=== PATIENT | male | born 1970 | race Caucasian/White ===

== ENCOUNTER 2017-01-16 11:23 | Outpatient (RCR) | payer BC | END 2017-02-02 | disposition home or self-care (01) | LOC: WCC 11:23 | DX: L97.812 Non-pressure chronic ulcer of other part of right lower leg with fat layer exposed (principal); I10 Essential (primary) hypertension; G47.30 Sleep apnea, unspecified; Z79.82 Long term (current) use of aspirin | CPT/HCPCS: 99204 ==

== ENCOUNTER 2018-07-26 00:49 | Emergency (ER) | payer BC ==
[~2018-07-26] VITALS: Ht 165.1 cm; Wt 86.2 kg
[2018-07-26 01:00] VITALS: BP 130/78
[2018-07-26] MEDS ORDERED: QUINAPRIL HCL20 MG PO (01:04)
[2018-07-26] MEDS ORDERED: ASPIR 8181 MG ORAL (01:04)
--- NOTE | 2018-07-26 01:19 | NUR ---
ED Nurse Note: Patient walk in c/o laceration to 3rd digit on left hand 1 hour ago. AO4. NAD. VSS. significant other at bedside.
[2018-07-26] MEDS ORDERED: Bacitracin Oint UD TOPIC ONE ×2 (01:21→01:30)
[2018-07-26] MEDS ORDERED: BACITRACIN15 GM TOPIC (01:41)
[2018-07-26 01:45] VITALS: BP 130/78
--- NOTE | 2018-07-26 01:45 | NUR ---
ED Nurse Note: Patient cleared cleared for discharge per ERMD. AO4. NAD. VSS. Patient given prescriptions and discharge instructions; patient verbalized understanding. ID removed. Patient ambulated steady out of ED with all belongings.
--- NOTE | 2018-07-26 22:04 | Emergency Room Report ---
History of Present Illness General Chief Complaint: Laceration Source: Patient Present Illness HPI 48-year-old male presents ED for evaluation. States that he cut his left middle finger with a knife tonight. States it was bleeding a lot so he got nervous and came to the ER. Upon arrival patient states is no active bleeding. Denies pain. Tetanus is up-to-date. Notes full range of motion to the left middle finger. Denies any other injuries. No other aggravating relieving factors. Denies any other associated symptoms Allergies: Coded Allergies: No Known Allergies (Unverified , 07/26/18) Patient History Past Medical History: DM, HTN, asthma Social History: Denies: smoking, alcohol use, drug use Immunizations: UTD Reviewed Nursing Documentation: PMH: Agreed; PSxH: Agreed Nursing Documentation-PMH Past Medical History: No History, Except For Hx Hypertension: Yes Hx Asthma: Yes Hx Diabetes: Yes - pre diabetes Review of Systems All Other Systems: negative except mentioned in HPI Physical Exam Vital Signs Date Time Temp Pulse Resp B/P (MAP) Pulse Ox O2 Delivery O2 Flow Rate FiO2 07/26/18 00:56 97.7 81 16 130/78 95 Room Air Sp02 EP Interpretation: reviewed, normal General Appearance: no apparent distress, alert, GCS 15, non-toxic Head: normocephalic Eyes: bilateral eye normal inspection, bilateral eye PERRL ENT: normal ENT inspection Neck: normal inspection Respiratory: normal inspection Cardiovascular #1: normal inspection Gastrointestinal: normal inspection Rectal: deferred Genitourinary: no CVA tenderness Musculoskeletal: back normal, gait/station normal, normal range of motion, non- tender Neurologic: alert, oriented x3, responsive, motor strength/tone normal, sensory intact, speech normal Psychiatric: normal inspection Skin: laceration - superficial laceration dorsal aspect L middle finger. no active bleeding Lymphatic: normal inspection Medical Decision Making Diagnostic Impression: Primary Impression: Laceration ER Course Hospital Course 48-year-old M presents to ED s/p laceration L middle finger using knife Clinical course Patient placed on stretcher. After initial history, physical exam reveals male in no acute distress. On exam there is a superficial laceration to the dorsal aspect of the left middle finger. No active bleeding. Discussed with patient. Wound irrigated. Bacitracin dressing applied. No sutures or Dermabond required. Tetanus is up-to-date. Safe for discharge close outpatient follow-up. Patient does not have a PMD. We 'll provide referrals Diagnosis - laceration Stable and discharged to home with prescription for bacitracin. wound Care instructions given. Return to ED if any signs of infection develop Last Vital Signs Date Time Temp Pulse Resp B/P (MAP) Pulse Ox O2 Delivery O2 Flow Rate FiO2 07/26/18 01:45 97.7 16 130/78 95 Room Air 07/26/18 01:00 63 Status: improved Disposition: HOME, SELF-CARE Condition: Stable Scripts Bacitracin (Bacitracin) 28.4 Gm Oint...g. 1 APPLIC TOPIC THREE TIMES A DAY, #28.4 GM Prov: Valentin Thompson MD 07/26/18 Referrals: NON PHYSICIAN (PCP) [facility] Patient Instructions: Nonsutured Laceration Care Valentin Thompson MD Jul 26, 2018 22:04
== END 2018-07-26 01:45 | disposition home or self-care (01) ==
LOC: EMR 01:22
DX: S61.213A Laceration without foreign body of left middle finger without damage to nail, initial encounter (principal); W26.0XXA Contact with knife, initial encounter; Y92.9 Unspecified place or not applicable; E11.9 Type 2 diabetes mellitus without complications; I10 Essential (primary) hypertension; J45.909 Unspecified asthma, uncomplicated
CPT/HCPCS: 99282